=== PATIENT | female | born 1985 | race Caucasian/White ===

== ENCOUNTER 2021-08-07 11:45 | Emergency (ER) | payer MEDICAID, SELFPAY ==
[2021-08-07 11:50] VITALS: BMI 31.6
--- NOTE | 2021-08-07 11:54 | XR_ITS ---
WS: [id number] PORTABLE CHEST HISTORY: chest pain COMPARISON: None available. Lungs are clear and well expanded. No pleural effusion or pneumothorax. Cardiac size: Normal. Mediastinum/Aorta: Normal mediastinum. No osseous abnormality seen. XR/XR chest 1V portable [id number] IMPRESSION: Unremarkable portable chest.
--- NOTE | 2021-08-07 11:54 | ECG_ITS ---
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
--- NOTE | 2021-08-07 12:12 | ED_ITS ---
HPI - Chest Pain General: Chief Complaint: Chest Pain Stated Complaint: LEFT SIDE ARM AND CP Time Seen by Provider: 08/07/21 12:12 History of Present Illness: HPI narrative: Ms Gabriel is a 36-year-old lady with no significant past medical history presents to the emergency department due to chest and arm pain. Symptom onset was a few days ago without specific provoking factor. She endorses left anterior chest pain with radiation up the arm. Symptoms are worse with movement, palpation, and deep inspiration. Aching and sharp in nature. Overall course has been worsening and was unbearable today. Denies history of similar. No history of thromboembolic events, recent long immobilization, OCPs. Non-smoker, does have positive family history for cardiac disease. Review of Systems General: Reports: 10 or more systems reviewed and unremarkable except in HPI and below Physical Exam Narrative: EXAM NARRATIVE: GENERAL/CONSTITUTIONAL - well-appearing. Eyes - PERRL, no conjunctival injection ENMT - Atraumatic external nose and ears. Moist mucous membranes NECK - supple. trachea midline CARDIOVASCULAR - regular rate and rhythm. RESPIRATORY -clear to auscultation bilaterally. ABDOMEN/GI - Nontender/Nondistended. MSK - there is tenderness palpation of the supraclavicular region and top of the glenohumeral joint region. Range of motion is intact though there is some pain approximately 60 degree elevation when shoulder is abducted SKIN - Warm, Dry NEURO - alert and appropriately oriented. Moves all extremities equally. Course ED course: - Patient was seen and evaluated by me at bedside - Patient placed on cardiac monitors, IV access obtained - Initial evaluation notable for exam as noted above, uncomfortable but no acute distress, nontoxic. -Symptom treatment ordered - Labs notable for no significant abnormality to explain patient's symptoms. - Imaging notable for no acute fracture identified. No obvious cause of chest pain. - Upon serial reexamination after treatment the patient was somewhat improved - Based on patient history, evaluation, labs, and imaging as interpreted the most likely cause of the patient's condition is chest pain of uncertain etiology and likely musculoskeletal shoulder pain given physical exam findings. - Patient low risk by heart score. Wells low risk and PERC negative. - The results of ED evaluation were discussed with the patient including prescriptions and/or symptomatic cares (if applicable) including appropriate and responsible use, followup plan, and return precautions. The patient verbalized understanding and felt safe for discharge. - Patient discharged in satisfactory condition. Vital Signs: Vital signs: Vital Signs Pulse Rate 72 08/07/21 14:25 Respiratory Rate 15 08/07/21 14:25 Blood Pressure 111/77 08/07/21 14:25 Pulse Oximetry 100 08/07/21 14:25 MDM - Chest Pain Medical Records: Attestation: I reviewed the patient's medical records. Lab Data: Attestation: I reviewed the patient's lab results. Labs: Lab Results 08/07/21 08/07/21 08/07/21 12:49 12:49 12:49 WBC 7.5 10^3/uL 10^3/ uL (4.0-10.0) RBC 5.23 10^6/uL 10^6 /uL (4.1-5.3) Hgb 14.2 g/dL g/dL (11.5-15.3) Hct 46.0 % % (37.0-47.0) MCV 88.0 fl fl (81-99) MCH 27.2 pg L pg (28.0-34.0) MCHC 30.9 g/dL g/dL (30.0-36.0) RDW 12.5 % % (12.1-15.1) Plt Count 263 10^3/cmm 10^3 /cmm (130-400) MPV 12.3 fL H fL (7.4-10.4) Neut % (Auto) 54.9 % % Lymph % (Auto) 32.2 % % [place] % (Auto) 7.6 % % Eos % (Auto) 4.1 % % Baso % (Auto) 1.1 % % Neut # (Auto) 4.14 10^3/uL 10^3 /uL (1.8-7.7) Lymph # (Auto) 2.4 10^3/uL 10^3/ uL (0.8-4.8) [place] # (Auto) 0.6 10^3/uL 10^3/ uL (0.2-0.9) Eos # (Auto) 0.3 10^3/uL 10^3/ uL (0.0-0.8) Baso # (Auto) 0.1 10^3/uL 10^3/ uL (0.0-0.1) Nucleated RBC % (a uto) 0 % % Nucleated RBCs # 0.0 /100WBC /100W BC Sodium 137 mmol/L mmol/L (136-145) Potassium 4.2 mmol/L mmol/L (3.5-5.1) Chloride 104 mmol/L mmol/L (98-107) Carbon Dioxide 23 mmol/L mmol/L (22-29) Anion Gap 14.2 (5-19) BUN 12 mg/dL mg/dL (6-20) Creatinine 0.7 mg/dL mg/dL (0.5-0.9) GFR Calculation 93.6 mL/min mL/mi n (90-130) Glucose 80 mg/dL mg/dL (65-115) Calculated Osmolal ity 283 mOsm/kg L mOs m/kg (285-295) Calcium 9.1 mg/dL mg/dL (8.5-10.5) Total Bilirubin 1.2 mg/dL mg/dL (0.15-1.2) AST 12 U/L U/L (0-32) ALT 18 U/L U/L (0-33) Alkaline Phosphata se 87 IU/L IU/L (35-105) Troponin T Baselin e 6 ng/L ng/L (0-10) Total Protein 7.1 g/dL g/dL (6.6-8.7) Albumin 4.4 g/dL g/dL (3.5-5.2) Globulin 2.7 g/dL g/dL (1.3-4.6) EKG Data^: EKG 1: Attestation: I personally reviewed and interpreted this EKG as follows: EKG interpretation date: 08/07/21 EKG interpretation time: 12:02 Interpretation: Twelve-lead EKG shows a regular rhythm at a rate of 74. ME interval 160, QRS duration 81, QTc 431. Normal axis. Interpretation: Sinus rhythm. Discharge Plan Discharge Patient Disposition: Home Clinical Impression: Chest pain, Acute shoulder pain Condition: Stable Prescriptions: New methocarbamol 750 mg tablet 750 mg PO TID Qty: 15 RF: 0 oxycodone 5 mg tablet 5 mg PO Q4H PRN (Reason: pain) Qty: 7 RF: 0 No Action Ventolin HFA 90 mcg/actuation Hfa Aerosol Inhaler 2 puff INHALATION QID PRN (Reason: Shortness Of Breath) RF: 0 Discharge Orders: Discharge ED (Routine); Ordered 08/07/21 Ordered By: Kermit Alvarado Discharge Diet: Usual diet Discharge Activity: Increase activity as tolerated Patient Instructions: Chest Pain (ED), Shoulder Pain (ED) Activity Restrictions/Additional Instructions: Thank you for visiting the emergency department. You were seen and evaluated for chest and shoulder pain. The exact cause of your symptoms is unclear though based on risk factors is low risk for a problem with your heart. Additionally based on exam I believe the most likely cause of your symptoms is related to shoulder musculoskeletal pain. Please continued symptomatic cares with [id number] medications, heat, ice. Please follow-up with your primary care provider. Please return to the emergency department for worsening symptoms or anything else that you are concerned about and feel needs emergency department evaluation. Coding Level of Care Code ED Orthotics Prosthetics Technician for Dada Rios
[2021-08-07] MEDS: methocarbamol 750 mg Tablet PO (12:49)
[2021-08-07] MEDS: acetaminophen 500 mg Tablet 1000 MG PO (12:49)
[2021-08-07] MEDS: ketorolac 30 mg/mL INJ 15 MG IVP (12:51)
[2021-08-07 12:52] VITALS: BP 144/95; PULSE 85; RESP 20; O2SAT 98
[2021-08-07 13:02] LABS: Basophils # 0.1 10^3/uL (0.0-0.1); Basophils % 1.1 %; Eosinophils # 0.3 10^3/uL (0.0-0.8); Eosinophils % 4.1 %; Hemoglobin 14.2 g/dL (11.5-15.3); Lymphocytes # 2.4 10^3/uL (0.8-4.8); Lymphocytes % 32.2 %; Mean Corpuscular HGB Conc 30.9 g/dL (30.0-36.0); Mean Corpuscular Hemoglobin 27.2 pg (28.0-34.0); Mean Platelet Volume 12.3 fL (7.4-10.4); Monocytes # 0.6 10^3/uL (0.2-0.9); Monocytes % 7.6 %; Neutrophils # 4.14 10^3/uL (1.8-7.7); Neutrophils % 54.9 %; Nucleated Red Blood Cells % 0 %; Platelet Count 263 10^3/cmm (130-400); Red Blood Count 5.23 10^6/uL (4.1-5.3); Red Cell Distribution Width 12.5 % (12.1-15.1); White Blood Count 7.5 10^3/uL (4.0-10.0)
[2021-08-07] MEDS: lidocaine 5% Patch 1 PATCH TOPICAL (13:12)
--- NOTE | 2021-08-07 13:21 | XR_ITS ---
WS: [id number] LEFT SHOULDER: 3 VIEW(S) TECHNIQUE: Internal and external rotation with Y view. HISTORY: pain with abduction and superior palpation COMPARISON: None available. No fracture or dislocation or soft tissue abnormality. Glenohumeral and AC joints are unremarkable. XR/XR shoulder LT min 2V* [id number] IMPRESSION: Normal LEFT shoulder.
[2021-08-07 13:29] LABS: Alanine Aminotransferase 18 U/L (0-33); Albumin Level 4.4 g/dL (3.5-5.2); Alkaline Phosphatase 87 IU/L (35-105); Anion Gap 14.2 (5-19); Aspartate Amino Transferase 12 U/L (0-32); Blood Urea Nitrogen 12 mg/dL (6-20); Calcium 9.1 mg/dL (8.5-10.5); Carbon Dioxide 23 mmol/L (22-29); Chloride 104 mmol/L (98-107); Globulin 2.7 g/dL (1.3-4.6); Glomerular Filtration Rate 93.6 mL/min (90-130); Glucose 80 mg/dL (65-115); Osmolality Calculated 283 mOsm/kg (285-295); Potassium 4.2 mmol/L (3.5-5.1); Sodium 137 mmol/L (136-145); Total Bilirubin 1.2 mg/dL (0.15-1.2); Total Protein 7.1 g/dL (6.6-8.7)
[2021-08-07 13:43] LABS: Troponin(5th) Baseline 6 ng/L (0-10)
--- NOTE | 2021-08-07 13:54 | ECG_ITS ---
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
[2021-08-07 14:25] VITALS: BP 111/77; PULSE 72; RESP 15; O2SAT 100
== END 2021-08-07 14:26 | disposition home or self-care (01) ==
PROVIDERS: Physician Assistant; Emergency Provider Emergency Medicine
DX: R07.9 Chest pain, unspecified (principal); M25.512 Pain in left shoulder
CPT/HCPCS: 71045; 73030; 80053; 84484; 85025; 93005; 96374; 99283; J1885